=== PATIENT | female | born 1995 | race African-American/Black ===

== ENCOUNTER 2018-12-03 14:38 | Emergency (ER) | payer SELFPAY ==
[~2018-12-03] VITALS: Ht 162.6 cm; Wt 59.0 kg
[2018-12-03] MEDS ORDERED: DEXAMETHASONE SOD PHOS 4 MG/ML VIAL PO ONE (15:00)
[2018-12-03] MEDS ORDERED: IBUPROFEN 400 MG TABLET. PO ONE (15:00)
--- NOTE | 2018-12-03 15:05 | PHYS DOC ---
Past Medical History Past Medical History: No Pertinent History Past Surgical History: No Surgical History Alcohol Use: None Drug Use: None Adult General Chief Complaint Chief Complaint: SORE THROAT HPI HPI 23-year-old female presents to ER for complaints of sore throat, nonproductive cough, and generalized headache. She reports symptoms have been ongoing for the past few days. 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 She denies fever. She denies shortness of air or chest pain. LMP 3 weeks ago. She denies difficulty swallowing. She denies urinary symptoms. Patient states he took ibuprofen yesterday denying any medications today. Pt denies being a smoker. Review of Systems Review of Systems Constitutional: Denies fever or chills [] Eyes: Denies change in visual acuity, redness, or eye pain [] HENT: Denies nasal congestion. Reports sore throat- denies difficulty swallowing Respiratory: Denies shortness of breath. Reports nonprod. cough Cardiovascular: No additional information not addressed in HPI [] GI: Denies abdominal pain, nausea, vomiting, bloody stools or diarrhea [] : Denies dysuria or hematuria [] Musculoskeletal: Denies back pain or joint pain [] Integument: Denies rash or skin lesions [] Neurologic: Denies focal weakness or sensory changes. Reports diffuse SLATER denying dizziness Endocrine: Denies polyuria or polydipsia [] All other systems were reviewed and found to be within normal limits, except as documented in this note. Current Medications Current Medications Current Medications Medications (Trade) Dose Ordered Sig/Quin Start Time Stop Time Status Last Admin Dose Admin Dexamethasone Sodium Phosphate (Decadron) 10 mg 1X ONCE 12/03/18 15:00 12/03/18 15:01 DC 12/03/18 15:08 10 MG Ibuprofen (Motrin) 400 mg 1X ONCE 12/03/18 15:00 12/03/18 15:01 DC 12/03/18 15:08 400 MG Allergies Allergies Allergies Coded Allergies Type Severity Reaction Last Updated Verified No Known Drug Allergies 11/09/14 No Physical Exam Physical Exam Constitutional: Well developed, well nourished, no acute distress, non-toxic appearance. [] HENT: Normocephalic, atraumatic, bilateral ears normal, mucous membranes pink/dry- bilat. tonsillar swelling with erythema- rt tonsil more swollen, no oral exudates, nose normal. [] Eyes: PERRLA, no nystagmus, conjunctiva normal, no discharge. [] Neck: Normal range of motion, no tenderness, supple, no stridor/gross adenopathy Cardiovascular: Heart rate regular rhythm, no murmur [] Lungs & Thorax: Bilateral breath sounds clear to auscultation- resp. equal/nonlabored Abdomen: Bowel sounds normal, soft, no tenderness Skin: Warm, dry, no erythema, no rash. [] Back: No tenderness, no CVA tenderness. [] Extremities: No tenderness, no cyanosis, no clubbing, ROM intact, no edema. [] Neurologic: Alert and oriented X 3, normal motor function, normal sensory function, no focal deficits noted. [] Psychologic: Affect normal, judgement normal, mood normal. [] Current Patient Data Vital Signs Vital Signs Date Time Temp Pulse Resp B/P (MAP) Pulse Ox O2 Delivery O2 Flow Rate FiO2 12/03/18 15:00 99.3 94 16 125/59 (81) 98 Room Air 99.3 EKG EKG [] Radiology/Procedures Radiology/Procedures [] Course & Med Decision Making Course & Med Decision Making Pertinent Labs reviewed. (See chart for details) Pt was evaluated in the ER for sore throat. Patient was provided with dose of ibuprofen and Decadron 4 throat pain as well as diffuse headache. Patient was nontoxic in appearance and vital signs were stable. Patient had negative strep test. Discussed probable viral illness with patient and advised on uuzs-meh-imiwons medications such as Tylenol and ibuprofen as well as throat spray and lozenges. Education provided on signs and symptoms to return to ER. Discharge instructions were discussed. Patient to follow-up with primary care physician if symptoms persist or with any concerns. Dragon Disclaimer Dragon Disclaimer This electronic medical record was generated, in whole or in part, using a voice recognition dictation system. Departure Departure Impression: Primary Impression: Viral syndrome Disposition: 01 HOME, SELF-CARE Condition: STABLE Referrals: NO PCP (PCP) Patient Instructions: Viral Syndrome Additional Instructions: Drink plenty of fluids and eat well-balanced meals daily. Tylenol and/or ibuprofen as needed for fever and pain control as directed on container. If symptoms persist follow-up with your primary care physician for further care and reevaluation. MICHELLE KIM [employer] Dec 03, 2018 15:05
[2018-12-03 16:09] VITALS: BP 112/67
== END 2018-12-03 16:10 | disposition home or self-care (01) ==
LOC: ER 14:38
DX: B34.9 Viral infection, unspecified (principal); J02.9 Acute pharyngitis, unspecified; R51 Headache; R05 Cough
CPT/HCPCS: 87070; 87880; 99283; J1100

== ENCOUNTER 2019-03-20 20:00 | Emergency (ER) | payer SELFPAY ==
[~2019-03-20] VITALS: Ht 162.6 cm; Wt 56.2 kg
[2019-03-20 21:13] VITALS: BP 96/57
[2019-03-20] MEDS ORDERED: OFLO5DRO EACHEYE (21:31)
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
== END 2019-03-20 21:48 | disposition home or self-care (01) ==
LOC: ER 20:00
DX: T26.92XA Corrosion of left eye and adnexa, part unspecified, initial encounter (principal); T26.91XA Corrosion of right eye and adnexa, part unspecified, initial encounter; Y92.89 Other specified places as the place of occurrence of the external cause; Y93.89 Activity, other specified; Y99.8 Other external cause status
CPT/HCPCS: 99283

== ENCOUNTER 2019-03-31 09:46 | Emergency (ER) | payer BC ==
[~2019-03-31] VITALS: Ht 165.1 cm; Wt 56.7 kg
[~2019-03-31 09:46] MED LIST: OFLO5DRO EACHEYE
[2019-03-31] MEDS ORDERED: BUTALB/APAP/CAFEIN 50/325/40MG TABLET. PO ONE (10:15)
[2019-03-31] MEDS ORDERED: ONDANSETRON ODT 4 MG TAB.RAPDIS. PO ONE (10:15)
[2019-03-31 10:23] LABS: BILIRUBIN,URINE NEGATIVE (NEG); CLARITY,URINE CLEAR; COLOR,URINE YELLOW; NITRITE,URINE NEGATIVE (NEG); PROTEIN,URINE 30 mg/dL (NEG-TRACE); UROBILINOGEN,URINE 0.2 mg/dL (0.2 mg/dL)
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
[2019-03-31 10:40] VITALS: BP 110/62
[2019-03-31 10:42] LABS: BACTERIA,URINE FEW /HPF (0-FEW); RBC,URINE 0 /HPF (0-2); SQUAMOUS EPITHELIAL CELL,UR MOD /LPF
[2019-03-31] MEDS ORDERED: ONDA4TAB12 PO (10:47)
[2019-03-31] MEDS ORDERED: BUTA1TAB23 PO (10:47)
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
== END 2019-03-31 11:05 | disposition home or self-care (01) ==
LOC: ER 09:46 → EEVIPCON 09:46 → ER 11:05
DX: T74.11XA Adult physical abuse, confirmed, initial encounter (principal); S00.83XA Contusion of other part of head, initial encounter; S50.12XA Contusion of left forearm, initial encounter; G43.909 Migraine, unspecified, not intractable, without status migrainosus; Y04.8XXA Assault by other bodily force, initial encounter; Y93.89 Activity, other specified; Y92.89 Other specified places as the place of occurrence of the external cause; Y99.8 Other external cause status
CPT/HCPCS: 70450; 70486; 73090; 81001; 81025; 99285; Q0162

== ENCOUNTER 2019-05-31 08:49 | Emergency (ER) | payer BC ==
[~2019-05-31] VITALS: Ht 162.6 cm; Wt 56.7 kg
[~2019-05-31 08:49] MED LIST changes: +BUTA1TAB23 PO; +ONDA4TAB12 PO
[2019-05-31] MEDS ORDERED: KETOROLAC 30 MG/ML VIAL. IM STA (09:21)
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
[2019-05-31] MEDS ORDERED: ONDANSETRON ODT 4 MG TAB.RAPDIS. PO ONE (09:30)
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
[2019-05-31 10:18] VITALS: BP 114/57
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
[2019-05-31] MEDS ORDERED: ONDA4TAB12 PO (10:54)
== END 2019-05-31 10:55 | disposition home or self-care (01) ==
LOC: ER 08:49
DX: S06.0X0A Concussion without loss of consciousness, initial encounter (principal); S05.12XA Contusion of eyeball and orbital tissues, left eye, initial encounter; M79.641 Pain in right hand; G43.909 Migraine, unspecified, not intractable, without status migrainosus; Y08.89XA Assault by other specified means, initial encounter; Y93.89 Activity, other specified; Y92.89 Other specified places as the place of occurrence of the external cause; Y99.8 Other external cause status
CPT/HCPCS: 70450; 70486; 72125; 73130; 81025; 96372; 99285; J1885; Q0162

== ENCOUNTER 2020-07-15 12:27 | Emergency (ER) | payer BC, MEDICAID ==
[~2020-07-15] VITALS: Ht 162.6 cm; Wt 53.8 kg
[2020-07-15 12:51] VITALS: BP 106/51
[2020-07-15 13:10] LABS: BILIRUBIN,URINE NEGATIVE (NEG); CLARITY,URINE CLEAR; COLOR,URINE AMBER; NITRITE,URINE NEGATIVE (NEG); PH,URINE 6.5 (<5.0-8.0); PROTEIN,URINE NEGATIVE (NEG-TRACE)
[2020-07-15 13:26] LABS: BACTERIA,URINE 0 /HPF (0-FEW); RBC,URINE 0 /HPF (0-2)
--- NOTE | 2020-07-15 13:40 | PHYS DOC ---
Past Medical History Past Medical History: Migraines Additional Past Medical Histor: Concussion Past Surgical History: No Surgical History Smoking Status: Never Smoker Alcohol Use: None Drug Use: Marijuana Social History Narrative: OCCASIONAL MARIJUANA USE General Adult EDM: Chief Complaint: FLANK PAIN HPI: HPI: Patient is a 24 year old female who is approximately 9 weeks , LMP 05/09, she is G3, P2, presents for evaluation of left flank and left low back pain. She reports symptoms intermittent for the past 2 weeks but increased over the last 2 days. She denies any vaginal bleeding or discharge. She denies any abdominal pain or cramping. She intends to set up an OB appointment at [facility], has not done this yet. She reports history of UTI, no history of kidney stones. She reports no dysuria, urgency or frequency. She has had some nausea but assumed that this was more associated with the early . Review of Systems: Review of Systems: Constitutional: Denies fever or chills. [] Eyes: Denies change in visual acuity. [] HENT: Denies nasal congestion or sore throat. [] Respiratory: Denies cough or shortness of breath. [] Cardiovascular: Denies chest pain or edema. [] GI: Denies abdominal pain, + nausea, denies vomiting, bloody stools or diarrhea. [] : Denies dysuria. [] Musculoskeletal: Reports right flank and right lumbar tenderness [] Integument: Denies rash. [] Neurologic: Denies headache, focal weakness or sensory changes. [] Endocrine: Denies polyuria or polydipsia. [] Lymphatic: Denies swollen glands. [] Psychiatric: Denies depression or anxiety. [] Heart Score: Risk Factors: Risk Factors: DM, Current or recent (<one month) smoker, HTN, HLP, family history of CAD, obesity. Risk Scores: Score 0 - 3: 2.5% MACE over next 6 weeks - Discharge Home Score 4 - 6: 20.3% MACE over next 6 weeks - Admit for Clinical Observation Score 7 - 10: 72.7% MACE over next 6 weeks - Early Invasive Strategies Allergies: Allergies: Allergies Coded Allergies Type Severity Reaction Last Updated Verified No Known Drug Allergies 11/09/14 No Physical Exam: PE: Constitutional: Well developed, well nourished, no acute distress, non-toxic appearance. [] HENT: Normocephalic, atraumatic, bilateral external ears normal, oropharynx moist, no oral exudates, nose normal. [] Eyes: PERRLA, EOMI, conjunctiva normal, no discharge. [] Neck: Normal range of motion, no tenderness, supple, no stridor. [] Cardiovascular:Heart rate regular rhythm, no murmur [] Lungs & Thorax: Bilateral breath sounds clear to auscultation [] Abdomen: Bowel sounds normal, soft, no tenderness, no masses, no pulsatile masses. [] Skin: Warm, dry, no erythema, no rash. [] Back: +RT CVA TTP, RT LUMBAR PARASPINOUS TTP, NO MIDLINE TTP. [] Extremities: No tenderness, no cyanosis, no clubbing, ROM intact, no edema. [] Neurologic: Alert and oriented X 3, normal motor function, normal sensory function, no focal deficits noted. [] Psychologic: Affect normal, judgement normal, mood normal. [] Current Patient Data: Labs: Laboratory Tests Test 07/15/20 12:51 12 12:53 Urine Collection Type Unknown Urine Color Lilia Urine Clarity Clear Urine pH 6.5 (<5.0-8.0) Urine Specific [place] >=1.030 (1.000-1.030) Urine Protein Negative mg/dL (NEG-TRACE) Urine Glucose (UA) Negative mg/dL (NEG) Urine Ketones (Stick) >=80 mg/dL (NEG) Urine Blood Negative (NEG) Urine Nitrite Negative (NEG) Urine Bilirubin Negative (NEG) Urine Urobilinogen Dipstick 1.0 mg/dL (0.2 mg/dL) Urine Leukocyte Esterase Negative (NEG) Urine RBC 0 /HPF (0-2) Urine WBC 1-4 /HPF (0-4) Urine Squamous Epithelial Cells Few /LPF Urine Bacteria 0 /HPF (0-FEW) Urine Mucus Mod /LPF POC Urine HCG, Qualitative Hcg positive (Negative) Vital Signs: Vital Signs Date Time Temp Pulse Resp B/P (MAP) Pulse Ox O2 Delivery O2 Flow Rate FiO2 07/15/20 12:51 97.9 72 16 106/51 (69) 100 Room Air 97.9 EKG: EKG: [] Radiology/Procedures: Radiology/Procedures: [] Course & Med Decision Making: Course & Med Decision Making Pertinent Labs and Imaging studies reviewed. (See chart for details) [Vital signs stable, patient afebrile and nontoxic in appearance. She is advised to call and schedule appointment with her aviation ordnance officer at [facility]. She has some white blood cells in her urine sample, concern for UTI as she is currently . Will place patient on Keflex, recommend close follow-up with aviation ordnance officer and repeat UA to document resolution of infection. She is not having any vomiting or diarrhea. She is also not having any abdominal pain. heart tones 154 per bedside ultrasound by myself. Cloudbuild Disclaimer: Cloudbuild Disclaimer: This electronic medical record was generated, in whole or in part, using a voice recognition dictation system. Departure Departure Impression: Primary Impression: UTI (urinary tract infection) Qualified Codes: N30.00 - Acute cystitis without hematuria Disposition: 01 DC HOME SELF CARE/HOMELESS Referrals: NO PCP (PCP) Patient Instructions: Urinary Tract Infection Scripts Cephalexin (KEFLEX) 500 Mg Capsule 1 CAP PO TID for 7 Days, #21 CAP 0 Refills Prov: KESHIA BALTAZAR DEWATERING FILTERING SUPERVISOR 07/15/20 KESHIA BALTAZAR DEWATERING FILTERING SUPERVISOR Jul 15, 2020 13:40
[2020-07-15 13:53] LABS: BASO % 1 % (0-3); EOS % 0 % (0-3); HEMATOCRIT 35.1 % (36.0-47.0); HEMOGLOBIN 11.8 g/dL (12.0-15.5); LYMPH # 1.7 x10^3/uL (1.0-4.8); LYMPH % 26 % (24-48); MEAN CORPUSCULAR HEMOGLOBIN 29 pg (25-35); MEAN CORPUSCULAR HGB CONC 34 g/dL (31-37); MEAN CORPUSCULAR VOLUME 84 fL (79-100); MONO # 0.2 x10^3/uL (0.0-1.1); MONO % 4 % (0-9); NEUT # 4.5 x10^3/uL (1.8-7.7); NEUT % 69 % (31-73); PLATELET COUNT 199 x10^3/uL (140-400); RED BLOOD COUNT 4.15 x10^6/uL (3.50-5.40); RED CELL DISTRIBUTION WIDTH 12.7 % (11.5-14.5); WHITE BLOOD COUNT 6.4 x10^3/uL (4.0-11.0)
[2020-07-15 14:02] LABS: CALCIUM 8.8 mg/dL (8.5-10.1); CREATININE 0.7 mg/dL (0.6-1.0); GFR 125.5; POTASSIUM 3.3 mmol/L (3.5-5.1)
[2020-07-15 14:08] LABS: ALBUMIN 3.7 g/dL (3.4-5.0); TOTAL BILIRUBIN 0.5 mg/dL (0.2-1.0); TOTAL PROTEIN 7.5 g/dL (6.4-8.2)
[2020-07-15 14:13] LABS: PREG TEST PT QUAL POSITIVE (NEG)
[2020-07-15] MEDS ORDERED: CEPH-264 PO (14:55)
== END 2020-07-15 15:09 | disposition home or self-care (01) ==
LOC: ER 12:27
DX: N30.00 Acute cystitis without hematuria (principal); G43.909 Migraine, unspecified, not intractable, without status migrainosus; Z87.440 Personal history of urinary (tract) infections; Z3A.09 9 weeks gestation of pregnancy
CPT/HCPCS: 36415; 80053; 81001; 81025; 84703; 85025; 99283

== ENCOUNTER 2020-12-24 00:07 | Emergency (ER) | payer OTHER, MEDICAID ==
[~2020-12-24] VITALS: Ht 162.6 cm; Wt 54.5 kg
[~2020-12-24 00:07] MED LIST changes: +CEPH-264 PO
[2020-12-24] MEDS ORDERED: NAPR-677 PO (01:41)
[2020-12-24] MEDS ORDERED: CYCL10TA2 PO (01:41)
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
[2020-12-24 01:43] VITALS: BP 121/74
[2020-12-24] MEDS: NAPROXEN 500 MG TABLET PO ONE (01:49)
--- NOTE | 2020-12-24 06:40 | RAD ---
INDICATION: Reason: pain / Spl. Instructions: / History: COMPARISON: None. IMPRESSION: Lumbar spine: 3 views obtained. No acute fracture or dislocation. Electronically signed by: Lance Lee MD (12/24/2020 6:38 AM) [id number]
--- NOTE | 2020-12-24 06:44 | RAD ---
INDICATION: Reason: pain / Spl. Instructions: / History: COMPARISON: None. IMPRESSION: Right lower le views obtained. No acute fracture or dislocation. Electronically signed by: Lance Lee MD (12/24/2020 6:41 AM) [id number]
== END 2020-12-24 02:05 | disposition home or self-care (01) ==
LOC: ER 00:07
DX: M54.5 Low back pain (principal); M79.604 Pain in right leg; G43.909 Migraine, unspecified, not intractable, without status migrainosus; G89.11 Acute pain due to trauma; V43.52XA Car driver injured in collision with other type car in traffic accident, initial encounter; Y92.488 Other paved roadways as the place of occurrence of the external cause; Y93.89 Activity, other specified; Y99.8 Other external cause status
CPT/HCPCS: 72100; 73590; 81025; 99284